=== PATIENT | female | born 1995 | race Caucasian/White ===

== ENCOUNTER 2016-04-15 20:19 | Emergency (ER) | payer OTHER ==
[~2016-04-15] VITALS: Ht 162.6 cm; Wt 47.5 kg
[2016-04-15 20:29] VITALS: TEMP 36.6; Ht 162.6 cm; Wt 47.5 kg
[2016-04-15 21:19] LABS: URINE APPEARANCE CLEAR (CLEAR); URINE BILIRUBIN NEG (NEG); URINE COLOR YELLOW; URINE NITRITE NEG (NEG); URINE SPECIFIC GRAVITY 1.012 (1.000-1.030); UROBILINOGEN NEG (NEG); ZZUR CULT IF INDIC CLEAN CATCH NO
[2016-04-15] MEDS ORDERED: BCPILLS PO (21:33)
[2016-04-15 21:41] LABS: MANUAL MICROSCOPIC REQUIRED? NO; REVIEW REQ? NO
--- NOTE | 2016-04-15 22:01 | EMERGENCY ROOM VISIT NOTE ---
History First contact with patient: 20:32 Chief Complaint: URINARY SYMPTOMS Stated Complaint: UTI Nursing Triage Summary: pt c/o urinary symptoms. states she has "discomfort" all day and "tingling and burning in urethra" after urination. report she has had utis in the past. denies abd pain. denies nausea/vomiting. pt's mother requesting urine to "get a culture done on it." History of Present Illness The patient is a 20 year old female who presents to the Emergency Room with complaints of urinary symptoms for 1 month. The patient reports that she diagnosed herself with a UTI 1 month ago. The patient states that she works for , and he called in an antibiotic for her. She took ciprofloxacin, 500 mg twice daily for 3 days. The patient reports she has pain in the area of her urethra. She denies urinary frequency, urgency or incomplete emptying. She states that it does not burn when she urinates. She is concerned about interstitial cystitis. She denies any vaginal discharge or bleeding. She denies any abdominal pain or back pain. She denies fevers/chills. Review of Systems A complete 10-point Review of Systems was discussed with the patient, with pertinent positives and negatives listed in the History of Present Illness. All remaining Review of Systems questions can be considered negative unless otherwise specified. Social History Smoking Status: Never Smoker Current/Historical Medications Scheduled Control Pills ( Control Pills), 1 TAB PO DAILY Allergies Coded Allergies: Amoxicillin (Verified Adverse Reaction, Unknown, GI upset, 04/15/16) Physical Exam Vital Signs Date Time Temp Pulse Resp B/P Pulse Ox O2 Delivery O2 Flow Rate FiO2 04/15/16 22:07 77 20 128/78 97 04/15/16 20:29 36.6 84 18 120/78 96 Room Air Physical Exam VITALS: Vitals are noted on the nurse's note and reviewed by myself. Vital signs stable. GENERAL: This is a 20-year-old female, in no acute distress, nondiaphoretic, well-developed well-nourished. HEART: Regular rate and rhythm without murmurs gallops or rubs. LUNGS: Clear to auscultation bilaterally without wheezes, rales or rhonchi. ABDOMEN: Soft, nontender to palpation. NEURO: Patient was alert and oriented to person place and time. Medical Decision & Procedures Laboratory Results Test 04/15/16 20:34 04/15/16 20:35 Urine Test NEG (NEG) Urine Color YELLOW Urine Appearance CLEAR (CLEAR) Urine pH 7.0 (4.5-7.5) Urine Specific [place] 1.012 (1.000-1.030) Urine Protein NEG (NEG) Urine Glucose (UA) NEG (NEG) Urine Ketones NEG (NEG) Urine Occult Blood NEG (NEG) Urine Nitrite NEG (NEG) Urine Bilirubin NEG (NEG) Urine Urobilinogen NEG (NEG) Urine Leukocyte Esterase NEG (NEG) Medical Decision Differential diagnosis includes urinary tract infection, vaginal infection, among others. The patient was evaluated as above. Urinalysis was obtained and was completely negative. I spoke with the patient and her mother. The patient's mother requested a urine culture, as she states that there is a family history of urinary tract infections with normal urinalysis. I do not feel that this represents a urinary tract infection, but I did send the urine for culture. I did recommend that the patient have a pelvic exam, but she adamantly refused. I did recommend that she follow-up with her primary care provider or an [facility] for a pelvic exam, as she may have a vaginal infection. 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 I explained to her that there are other types of vaginal infections which could be causing her symptoms, but she again declined pelvic exam. The patient was encouraged to return for worsening symptoms. She verbalized understanding and was discharged home in good condition. Impression Primary Impression: Symptoms involving urinary system Departure Information Dispostion Home / Self-Care Condition GOOD Referrals No Doctor, Assigned (PCP) Cole Green M.D. Patient Instructions My [facility] Additional Instructions You will be contacted if your urine culture results are positive. Follow-up with your [facility] or primary care provider for a pelvic exam. You may also follow-up with a urologist for your urinary symptoms. Return to the emergency department with worsening symptoms.
[2016-04-15 22:07] VITALS: BP 128/78; PULSE 77; O2SAT 97
== END 2016-04-15 22:08 | disposition home or self-care (01) ==
LOC: C.EDB 20:21
DX: R39.9 Unspecified symptoms and signs involving the genitourinary system (principal)

== ENCOUNTER 2016-04-21 13:47 | Emergency (ER) | payer OTHER ==
[~2016-04-21] VITALS: Ht 162.6 cm; Wt 50.1 kg
[~2016-04-21 13:47] MED LIST: BCPILLS PO
[2016-04-21 13:49] VITALS: TEMP 36.6; Ht 162.6 cm; Wt 50.1 kg
[2016-04-21 14:37] LABS: MANUAL MICROSCOPIC REQUIRED? NO; REVIEW REQ? NO; URINE APPEARANCE CLEAR (CLEAR); URINE BILIRUBIN NEG (NEG); URINE COLOR YELLOW; URINE EPITHELIAL CELL AUTO >30 /lpf (0-5); URINE NITRITE NEG (NEG); URINE PH 5.5 (4.5-7.5); URINE SPECIFIC GRAVITY 1.023 (1.000-1.030); UROBILINOGEN NEG (NEG); ZZUR CULT IF INDIC CLEAN CATCH YES
--- NOTE | 2016-04-21 15:06 | EMERGENCY ROOM VISIT NOTE ---
History Report prepared by Tahira: Mary Gomez Under the Supervision of: Rissa GillespieO. First contact with patient: 14:09 Chief Complaint: URINARY SYMPTOMS Stated Complaint: URINARY ISSUES Nursing Triage Summary: Patient here with urinary symptoms for weeks states she was seen here but is not any better. History of Present Illness The patient is a 20 year old female who presents to the Emergency Room with complaints of persistent urinary symptoms that began March 19. She currently rates her discomfort as a 4/10 in severity. The patient states that she was evaluated in the emergency department on April 15 for urinary symptoms. She states that her urinalysis and urine culture came back negative. The patient states that she has persistently been noticing urethral irritation , stating that she notices burning before and after urination, but not during urination. The patient states that she was offered a pelvic exam, but states that she declined [place] She states that her symptoms have persisted and she states that she cannot wait any longer. The patient states that she has had previous UTIs and states that her symptoms feel similar. She states that she was prescribed Cipro for her symptoms, but notes only slight alleviation. The patient states that her last menstrual cycle was a week ago and denies any previous . She states that she was last sexually active last evening. The patient denies any vaginal bleeding or discharge. She denies any previous surgeries. Source of History: patient Onset: March 19 Position: other (global) Symptom Intensity: 4/10 Quality: other (urinary symptoms) Timing: other (persistent) Review of Systems See HPI for pertinent positives & negatives. A total of 10 systems reviewed and were otherwise negative. Past Medical & Surgical Medical Problems: (1) UTI (urinary tract infection) Family History Hypertension Social History Smoking Status: Never Smoker Smokeless Tobacco Use: No Alcohol Use: none Marital Status: single Housing Status: lives with roommate Current/Historical Medications Scheduled Control Pills ( Control Pills), 1 TAB PO DAILY Scheduled PRN Oxycodone Immediate Rel Tab (Roxicodone Ir), 1-2 TAB PO Q4H PRN for Severe Pain Allergies Coded Allergies: Amoxicillin (Verified Adverse Reaction, Unknown, GI upset, 04/21/16) Physical Exam Vital Signs Date Time Temp Pulse Resp B/P Pulse Ox O2 Delivery O2 Flow Rate FiO2 04/21/16 17:06 85 18 128/77 98 2/14/17 15:34 85 18 128/77 98 Room Air 04/21/16 13:49 36.6 100 20 128/82 97 Room Air Physical Exam GENERAL: Patient is awake, alert, and in no acute distress. Patient is resting comfortably and showing no signs of anxiety EYES: The conjunctivae are clear. The pupils are round and reactive. EARS, NOSE, MOUTH AND THROAT: The nose is without any evidence of any deformity. Mucous membranes are moist tongue is midline NECK: The neck is nontender and supple. RESPIRATORY: Normal respiratory effort is noted there is no evidence of wheezing rhonchi or rales CARDIOVASCULAR: Regular rate and rhythm noted there no murmurs rubs or gallops normal S1 normal S2 GASTROINTESTINAL: The abdomen is soft. Bowel sounds are present in all quadrants. Abdomen is nontender PELVIC: External genitalia revealed no lesions or swelling or rashes. Speculum exam revealed normal cervix, there was no erythema or discharge noted. Bimanual exam no cervical motion tenderness, no adnexal fullness, or adnexal tenderness MUSCULOSKELETAL/EXTREMITIES: There is no evidence of gross deformity full range of motion is noted in the hips and shoulders SKIN: There is no obvious evidence of any rash. There are no petechiae, pallor or cyanosis noted. NEUROLOGIC: Patient is awake alert and oriented x3. Medical Decision & Procedures ER Provider Diagnostic Interpretation: Radiology results as stated below per my review and radiologist interpretation: RENAL ULTRASOUND CLINICAL HISTORY: Urinary frequency. COMPARISON STUDY: None. TECHNIQUE: Sonography of the kidneys and the urinary bladder was performed. FINDINGS: The right kidney measures 11 x 3.4 x 4 cm and the left measures 10.6 x 4.7 x 5.2 cm. Renal echogenicity, size and cortical thickness are normal. There is no hydronephrosis. No renal mass or calculus is identified by sonography. The ureteral jets are not visualized. Bladder was otherwise unremarkable. IMPRESSION: Normal renal ultrasound. No hydronephrosis. Electronically signed by: Kaushik Soliz M.D. 04/21/2016 4:39 PM Dictated Date/Time: 04/21/2016 4:38 PM KUB CLINICAL HISTORY: Urinary frequency. FINDINGS: 2 AP supine abdominal radiographs are obtained. No prior studies are available for comparison at the time of dictation. There is a nonobstructed abdominal bowel gas pattern. No evidence of intraperitoneal free air is seen on these supine views. There are no abnormal abdominal calcifications. The bony structures appear intact. The lung bases are clear as imaged. IMPRESSION: Normal examination. Electronically signed by: Ricardo Cole M.D. 04/21/2016 4:33 PM Dictated Date/Time: 04/21/2016 4:32 PM Laboratory Results Test 04/21/16 00:00 04/21/16 14:15 Urine Color YELLOW Urine Appearance CLEAR (CLEAR) Urine pH 5.5 (4.5-7.5) Urine Specific [place] 1.023 (1.000-1.030) Urine Protein TRACE (NEG) Urine Glucose (UA) NEG (NEG) Urine Ketones 1+ (NEG) Urine Occult Blood NEG (NEG) Urine Nitrite NEG (NEG) Urine Bilirubin NEG (NEG) Urine Urobilinogen NEG (NEG) Urine Leukocyte Esterase NEG (NEG) Urine WBC (Auto) 1-5 /hpf (0-5) Urine RBC (Auto) 0-4 /hpf (0-4) Urine Hyaline Casts (Auto) 1-5 /lpf (0-5) Urine Epithelial Cells (Auto) >30 /lpf (0-5) Urine Bacteria (Auto) 1+ (NEG) Urine Test NEG (NEG) Date/Time Source Procedure Growth Status 04/21/16 00:00 Cervix Swab Trichomonas Preparation - Final Complete Laboratory results per my review. ED Course 1420: The patient was evaluated in room A2. A complete history and physical examination were performed. 1539: I discussed the patients case with [facility]. She would see the patient in follow up in the office. 1648: I reevaluated the patient and she is resting comfortably. I discussed the exam findings with her and I discussed the treatment plan. She verbalized complete understanding and agreement. She is ready to go home. Medical Decision Nursing notes reviewed. The patient's previous electronic medical records reviewed. The patient is a 20-year-old female who presented to the emergency department for an evaluation of dysuria. The patient had a burning sensation especially with urination. She was here twice with the similar complaints. The last time she did not wish to have a pelvic exam done. Pelvic exam was done in the emergency department at this time. No definite signs of rash or other STD was noted but cultures were obtained. I discussed his case with urology. They do feel the patient may benefit from further urologic workup. They recommended the patient call the office as soon as possible for further evaluation. She was encouraged to continue all medications as prescribed. She was also encouraged to follow-up with urology since possible. She was also encouraged to avoid any sexual activity until she was cleared and having no further symptoms. Otherwise she was encouraged to return to the emergency department immediately if symptoms change worsen or the need arises. Consults Time Called: [phone] Consulting Physician: Juan Hanley Returned Call: [phone] I discussed the patients case with Juan Hanley. She would see the patient in follow up in the office. Impression Primary Impression: Dysuria Scribe Attestation The scribe's documentation has been prepared under my direction and personally reviewed by me in its entirety. I confirm that the note above accurately reflects all work, treatment, procedures, and medical decision making performed by me. Departure Information Dispostion Home / Self-Care Prescriptions Oxycodone Immediate Rel Tab (ROXICODONE IR) 5 Mg Tab 1-2 TAB PO Q4H Y for Severe Pain, #24 TAB Prov: Alexandre Orellana, DO 04/21/16 Referrals No Doctor, Assigned (PCP) Forms HOME CARE DOCUMENTATION FORM, IMPORTANT VISIT INFORMATION, School Instructions Patient Instructions Dysuria, My [facility] Additional Instructions Continue all medications as prescribed. Drink plenty of clear liquids. Follow- up with urologist as scheduled.
--- NOTE | 2016-04-21 16:34 | DIAGNOSTIC IMAGING REPORT ---
KUB CLINICAL HISTORY: Urinary frequency. FINDINGS: 2 AP supine abdominal radiographs are obtained. No prior studies are available for comparison at the time of dictation. There is a nonobstructed abdominal bowel gas pattern. No evidence of intraperitoneal free air is seen on these supine views. There are no abnormal abdominal calcifications. The bony structures appear intact. The lung bases are clear as imaged. IMPRESSION: Normal examination. Electronically signed by: Ricardo Cole M.D. 04/21/2016 4:33 PM Dictated Date/Time: 04/21/2016 4:32 PM
--- NOTE | 2016-04-21 16:40 | DIAGNOSTIC IMAGING REPORT ---
RENAL ULTRASOUND CLINICAL HISTORY: Urinary frequency. COMPARISON STUDY: None. TECHNIQUE: Sonography of the kidneys and the urinary bladder was performed. FINDINGS: The right kidney measures 11 x 3.4 x 4 cm and the left measures 10.6 x 4.7 x 5.2 cm. Renal echogenicity, size and cortical thickness are normal. There is no hydronephrosis. No renal mass or calculus is identified by sonography. The ureteral jets are not visualized. Bladder was otherwise unremarkable. IMPRESSION: Normal renal ultrasound. No hydronephrosis. Electronically signed by: Kaushik Soliz M.D. 04/21/2016 4:39 PM Dictated Date/Time: 04/21/2016 4:38 PM
[2016-04-21] MEDS ORDERED: OXYC1TAB3 PO (17:05)
[2016-04-21 17:06] VITALS: BP 128/77; PULSE 85; O2SAT 98
[2016-04-24 00:15] LABS: CHLAMYDIA TRACH RNA*** NOT DETECTED (NOT DETECTED); GC (NEIS GONORRHOEAE)RNA** NOT DETECTED (NOT DETECTED)
[2016-04-24 12:00] LABS: HERPES SIMPLEX CULT SOURCE URINE-URETHRA; HERPES SIMPLEX VIRUS CULT NOT ISOLATED (NOT ISOLATED)
== END 2016-04-21 17:05 | disposition home or self-care (01) ==
LOC: C.EDB 13:48 → C.EDA 17:05
DX: R30.0 Dysuria (principal); Z82.49 Family history of ischemic heart disease and other diseases of the circulatory system